=== PATIENT | female | born 1995 | race Hispanic/Latino ===

== ENCOUNTER 2022-08-18 09:18 | Emergency (ER) | payer OTHER ==
--- OUTSIDE RECORDS SUMMARY | 2022-08-18 09:25 | XMS REPORT | Continuity of Care Document ---
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 Gerhard as MATERNAL [phone] [facility] & CHILD [address] [place] [address] 2021-04-21 2021-04-21 Initial Erna [facility] 1.2.840.114 [id number] Univers 13:37:44 14:39:26 Stewart Michael 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 350.1.13.10 ity of Visit REGIONAL 4.2.7.2.686 Gerhard as MATERNAL [phone] [facility] & CHILD [address] [place] [address] 2021-04-21 2021-04-21 Outpatient Alec UMANZOR [facility] [id number] Univers 14:00:00 14:00:00 MANNDA artis o florentin [facility] 2021-04-21 2021-04-21 Outpatient [facility] [id number] Univers 13:30:00 13:30:00 MANNDA deborahy o florentin [facility] 2021-04-21 2021-04-21 Orders Doctor JOSE 1.2.840.114 [id number] Univers 00:00:00 00:00:00 Only Unassigned, COLLEEN 350.1.13.10 ity of [place] [facility] 4.2.7.2.686 Gerhard as [phone] [address] 2020-12-23 2020-12-23 Office Erna [facility] 1.2.840.114 [id number] Univers 08:33:52 09:07:07 Visit 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 R 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 350.1.13.10 ity of [facility] 4.2.7.2.686 Gerhard as MATERNAL [phone] [facility] ical & CHILD [address] [place] [address] 2020-12-23 2020-12-23 Outpatient Alec UMANZOR [facility] [id number] Univers 09:00:00 09:00:00 STEWART wisdom o florentin [facility] 2020-12-23 2020-12-23 Outpatient Alec UMANZOR [facility] [id number] Univers 09:00:00 09:00:00 STEWART barron [facility] 2020-10-06 2020-10-06 Nurse Visit, Located Within [facility] Nurse [facility] 1.2 .840.114 [id number] Univers 13:12:27 13:30:29 Visit Stewart Umanzor 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 350.1.13.10 ity of [facility] 4.2.7.2.686 Gerhard as MATERNAL [phone] [facility] & [address] 2020-10-06 2020-10-06 Outpatient Alec UMANZOR [facility] [id number] Univers 13:30:00 13:30:00 STEWART wisdom o florentin [facility] 2020-10-02 2020-10-02 [facility] [place] 1.2.840.114 [id number] Univers 12:47:27 13:15:07 oTrirajendranda R 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 350.1.13.10 ity of Visit [facility] 4.2.7.2.686 Gerhard as MATERNAL [phone] [facility] & CHILD [address] [place] [address] 2020-10-02 2020-10-02 Outpatient Alec UMANZOR [facility] [id number] Univers 12:45:00 12:45:00 STEWART lerma [facility] 2020-10-02 2020-10-02 Telephone Erna [facility] [id number] Univers 00:00:00 00:00:00 Stewart R 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 350.1.13.10 ity of [facility]AL 4.2.7.2.686 Gerhard as MATERNAL [phone] [facility] & CHILD [address] [place] [address] 2020-09-22 2020-09-22 Outpatient Alec UMANZOR [facility] [id number] Univers 10:30:00 10:30:00 STWEART barron [facility] 2020-09-22 2020-09-22 Outpatient Alec UMANZOR [facility] [id number] Univers 10:30:00 10:13:14 STEWART lerma [facility] 2020-09-22 2020-09-22 Automobile Damage Appraiser Lab, [facility] 1.2.840. 114 [id number] Univers 09:56:24 10:13:14 Visit Stewart Umanzor R 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 350.1.13.10 ity of [place] 4.2.7.2.686 Gerhard as MATERNAL [phone] [address] 2020-09-16 2020-09-16 Telephone Erna [facility] 1.2.644.408 [id number] Univers 00:00:00 00:00:00 Stewart R 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 350.1.13.10 ity of [facility]AL 4.2.7.2.686 Gerhard as MATERNAL [phone] [facility] & CHILD [address] [place] [address] 2020-09-15 2020-09-15 Outpatient [facility] [id number] Univers 10:30:00 10:30:00 STEWART barron [facility] 2020-09-15 2020-09-15 Automobile Damage Appraiser Lab, [facility] 1.2.840. 114 [id number] Univers 10:03:02 10:18:02 Visit Stewart Umanzor R 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 350.1.13.10 ity of [facility] 4.2.7.2.686 Gerhard as MATERNAL [phone] Med ical & CHILD [address] [place] [address] 2020-09-09 2020-09-09 [facility] [place] 1.2.246.376 [id number] Univers 00:00:00 00:00:00 Roshunda R 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 350.1.13.10 ity of [facility] 4.2.7.2.686 Gerhard as MATERNAL [phone] Med ical & CHILD [address] [place] [address] 2020-09-08 2020-09-08 Outpatient R [facility] [id number] Univers 08:30:00 08:30:00 MANNDA ity o f [facility] 2020-09-08 2020-09-08 Automobile Damage Appraiser Lab, [facility] 1.2.840. 114 [id number] [facility] 08:02:46 08:14:40 Visit Tori Umanzorarthur R 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 350.1.13.10 ity of [facility] 4..7.2.686 Gerhard as MATERNAL [phone] [facility] & CHILD [address] [place] [address] 2020-09-02 2020-09-02 Outpatient R [facility] [id number] Univers 09:30:00 09:30:00 MANNDA itirineo o florentin [facility] 2020-09-02 2020-09-02 [place] [facility] [place] [id number] Univers 00:00:00 00:00:00 Roshunda R 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 350.1.13.10 ity of [facility] 4.2.7.2.686 Gerhard as MATERNAL [phone] [facility] & CHILD [address] [place] [address] 2020-09-01 2020-09-01 Routine [facility] 1.2.840.114 [id number] Univers 13:56:31 14:43:33 Roshunda R 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 350.1.13.10 ity of Visit REGIONAL 4.2.7.2.686 Gerhard as MATERNAL [phone] [facility] ical & CHILD [address] [place] [address] 2020-09-01 2020-09-01 Outpatient [facility] [id number] Univers 14:15:00 14:15:00 MERYA artis o f [facility] 2020-08-27 2020-08-27 Emergency Sulma [facility] 1.2.840.114 [id number] Univers 11:32:00 13:56:00 Nina Kay [place] 350.1.13.10 ity of [place] 4.2.7.2.686 [facility] [phone] [facility] [address] [place] 2020-08-10 2020-08-10 Abstract Erna [facility] 1.2.840.114 [id number] Univers 00:00:00 00:00:00 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 R 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 350.1.13.10 ity of [facility] 4.2.7.2.686 Gerhard as MATERNAL [phone] Med ical & CHILD [address] [place] [address] 2020-08-05 2020-08-05 Automobile Damage Appraiser [facility] 1.2 .840.114 [id number] Univers 11:24:02 11:54:02 Visit Stewart Umanzor R 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 350.1.13.10 ity of [facility] 4.2.7.2 .686 [place] MATERNAL [phone] Med ical & CHILD [facility] 2020-08-05 2020-08-05 Routine Erna [facility] 1.2.840.114 [id number] Univers 08:31:46 08:46:46 Stewart R 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 350.1.13.10 ity of Visit REGIONAL 4.2.7.2.686 Gerhard as MATERNAL [phone] [facility] ical & CHILD [address] [place] [address] 2020-08-05 2020-08-05 Outpatient Alec UMANZOR [facility] [id number] Univers 08:15:00 08:15:00 STEWART lerma [facility] 2020-07-21 2020-07-21 Outpatient R ERNA [facility] [id number] Univers 10:30:00 10:30:00 STEWART lerma [facility] 2020-07-08 2020-07-08 Initial Erna [facility] 1.2.840.114 [id number] Univers 09:10:38 13:11:01 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 R 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 350.1.13.10 ity of Visit REGIONAL 4.2.7.2.686 Gerhard as MATERNAL [phone] [facility] ical & CHILD 107 [facility] 2020-07-08 2020-07-08 Outpatient R ERNA [facility] [id number] Univers 08:00:00 08:00:00 ROSHUNDA ity o f [facility] 2020-07-08 2020-07-08 Transition [facility] 1.2.840.114 [id number] Univers 00:00:00 00:00:00 of Care Kizzy Bucio 350.1.13.10 ity of [place].7.2.[place] [phone] [facility] [address] 2020-07-08 2020-07-08 Orders Doctor DAMON 1.2.840.114 [id number] Univers 00:00:00 00:00:00 Only Unassigned, COLLEEN 350.1.13.10 ity of [place] [facility] 4.2.7.2.686 Gerhard as [phone] [facility] [address] 2020-07-03 2020-07-06 [facility] Salazar Naima [facility] 1.2.840. 114 [id number] Univers 18:32:00 15:30:00 Encounter Alexei Chaudhari [place] 350.1.13.10 ity of [place] 4.2.7.2.686 [place] [phone] [facility] [address] [place] 2020-07-06 2020-07-06 [facility] [place] 1.2.825.883 [id number] Univers 00:00:00 00:00:00 Rospaigea R 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 350.1.13.10 ity of [facility] 4.2.7.2.686 Gerhard as MATERNAL [phone] [facility] & CHILD [address] [place] [address] 2020-07-02 2020-07-02 Office [facility] [place] 1.2.840.114 [id number] Univers 10:31:06 11:44:01 Visit Stewart R 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 350.1.13.10 ity of [facility] 4.2.7.2.686 Gerhard as MATERNAL [phone] [facility] ical & CHILD [address] [place] [address] 2020-07-02 2020-07-02 Outpatient R ERNA [facility] [id number] Univers 10:45:00 10:45:00 STEWART ity o f [facility] 2020-07-02 2020-07-02 Orders Doctor DAMON 1.2.840.114 [id number] Univers 00:00:00 00:00:00 Only Unassigned, COLLEEN 350.1.13.10 ity of [place] [facility] 4.2.7.2.686 Gerhard as [phone] [address] 2020-07-01 2020-07-01 Telephone ANUJ Childress 1.2.840.114 [id number] [facility] 00:00:00 00:00:00 Aline Anand 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 350.1.13.10 ity of [facility] 4.2.7.2.686 Gerhard as MATERNAL [phone] [facility] & CHILD [address] [place] [address] 2019-10-24 2019-10-24 [facility] 1.2 .840.114 [id number] [facility] 08:11:42 08:48:18 Visit Aline Childress 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 350.1.13. 10 ity of [facility] 4.2.7.2.686 Gerhard as MATERNAL [phone] [facility] & CHILD [address] [place] [address] 2019-05-09 2019-05-09 Nurse Visit, Isabelle Nurse [facility] 1.2 .840.114 [id number] Univers 09:28:44 09:44:44 Visit Aline Childress 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 350.1.13. 10 ity of [facility] 4.2.7.2.686 Gerhard as MATERNAL [phone] [facility] & CHILD [address] [place] [address] Results Test Description Test Time Test Comments Results Result Comments Source POCT TEST 2022-01-24 20:19:00 Test Item Value Reference Range Interpretation Comme nts POCT PREG (test code = 1605) Negative On board controls acceptable with C Line (test code = 3574) Yes POCT PREG LOT # (test code = 3575) POCT PREG TEST DATE (test code = 3576) [facility]
[2022-08-18] MEDS ORDERED: ONDANSETRON 4 MG/2 ML VIAL ONE (10:05)
[2022-08-18] MEDS ORDERED: MORPHINE 2 MG/ML SYR ONE ×2 (10:05→11:28)
[2022-08-18] MEDS ORDERED: NA CHLORIDE 0.9% 1,000 ML ONE (10:06)
[2022-08-18 10:08] LABS: Hematocrit 39.5 % (36.0-45.0); Lymphocytes % 8.3 % (15.3-44.8); MCV 84.6 fL (80-100); MPV 7.7 fL (7.6-11.3); RBC Red Blood Cell Count 4.67 M/uL (3.86-4.86)
[2022-08-18 10:19] LABS: Urine Bacteria <20 /HPF (<20); Urine Mucus Slight /HPF (None Seen); Urine RBC 21-50 /HPF (None Seen)
[2022-08-18 10:25] LABS: Albumin 4.1 g/dL (3.4-5.0); Bilirubin Total 0.6 mg/dL (0.2-1.0); Protein, Total 8.2 g/dL (6.4-8.2)
[2022-08-18 10:43] LABS: Urine Specific Gravity/Preg 1.025 (1.005-1.030)
[2022-08-18 10:48] LABS: SARS-COV-2 RT PCR NEGATIVE (NEGATIVE)
--- NOTE | 2022-08-18 11:07 | RAD REPORT ---
EXAM DESCRIPTION: CT - Abdomen Pelvis W Contrast - 08/18/2022 10:53 am CLINICAL HISTORY: abd pain, vomiting COMPARISON: <Comparisons> TECHNIQUE: Biphasic, helical CT imaging of the abdomen and pelvis was performed following 100 ml non -ionic IV contrast. Oral contrast: No. All CT scans are performed using dose optimization technique as appropriate and may include automated exposure control or mA/KV adjustment according to patient size. FINDINGS: No suspicious findings in the lung bases. The liver, spleen, and pancreas show no suspicious findings. Gallbladder and biliary tree are also wi thout suspicious finding. Symmetric renal function is seen with no hydronephrosis or suspicious renal mass. No pyelonephritis o r acute parenchymal process. No bladder abnormalities. No adrenal abnormalities. Uterus and ovaries s how no suspicious findings. No dilated bowel loops or bowel wall thickening. Appendix is normal. No free air, free fluid or infla mmatory stranding. No hernia, mass or bulky lymphadenopathy. A few small widely scattered mesenteric lymph nodes are present. No suspicious bony findings. IMPRESSION: Contrast enhanced CT abdomen and pelvis showing no acute or emergent finding.
--- NOTE | 2022-08-18 11:08 | RAD REPORT ---
EXAM DESCRIPTION: CT - Head Brain Wo Cont - 08/18/2022 10:52 am CLINICAL HISTORY: headache, vomiting COMPARISON: No comparisonsNo comparisons TECHNIQUE: Axial 5 mm thick images of the head were obtained without IV contrast. All CT scans are performed using dose optimization technique as appropriate and may include automated exposure control or mA/KV adjustment according to patient size. FINDINGS: No intracranial hemorrhage, mass, edema or shift of mid-line structures. No acute infarcti on changes seen. No abnormal extra-axial fluid collections. Ventricles are normal. Mastoid air cells and visualized portions of the paranasal sinuses are clear. No acute bony findings. IMPRESSION: Negative non-contrast CT head examination.
[2022-08-18] MEDS ORDERED: KETOROLAC 30 MG/ML INJ ONE (11:28)
--- NOTE | 2022-08-18 11:32 | ER ---
Nurse's Notes [facility] Name: Rickey Gary Age: 27 yrs Sex: Female : 1995 Arrival Date: 08/18/2022 Time: 09:25 Bed 12 Private MD: Diagnosis: Headache;Abdominal pain, unspecified;Vomiting, unspecified Presentation: 08/18 09:46 Chief complaint: Patient states: she started having a headache and abdominal pain ap3 yesterday. patient also reports having nausea and vomiting with the pain. Coronavirus screen: Client presents with at least one sign or symptom that may indicate coronavirus-19. Ebola Screen: No symptoms or risks identified at this time. Initial Sepsis Screen: Does the patient meet any 2 criteria? HR > 90 bpm. No. Patient's initial sepsis screen is negative. Does the patient have a suspected source of infection? No. Patient's initial sepsis screen is negative. Risk Assessment: Do you want to hurt yourself or someone else? Patient reports no desire to harm self or others. Onset of symptoms was August 17, 2022. 09:46 Method Of Arrival: Ambulatory ap3 09:46 Acuity: MILTON 3 ap3 Triage Assessment: 09:50 General: Appears. ap3 09:50 General: Appears uncomfortable, Behavior is calm, cooperative. Pain: Complains of pain ap3 in face and abdomen. Neuro: Level of Consciousness is awake, alert, obeys commands, Oriented to person, place, time. GI: Reports lower abdominal pain, upper abdominal pain, nausea. 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 - Social history:: Smoking status: Patient denies any tobacco usage or history of. - Family history:: not pertinent. - Hospitalizations: : No recent hospitalization is reported. Screenin:50 Abuse screen: Denies threats or abuse. Nutritional screening: No deficits noted. ap3 Tuberculosis screening: No symptoms or risk factors identified. Fall Risk None identified. Assessment: 10:45 Reassessment: No changes from previously documented assessment. Patient and/or family kr3 updated on plan of care and expected duration. Pain level reassessed. Patient is alert, oriented x 3, equal unlabored respirations, skin warm/dry/pink. 11:45 Reassessment: Patient and/or family updated on plan of care and expected duration. Pain kr3 level reassessed. Patient states symptoms have improved. 12:09 GI: Abdomen is tender to palpation X 4 quads. kr3 Vital Signs: 09:46 BP 119 / 68; Pulse 105; Resp 18; Temp 98.7(O); Pulse Ox 99% ; Weight 79.38 kg; Height 5 ap3 ft. 5 in. (165.10 cm); 10:45 BP 109 / 68; Pulse 96; Resp 17; Pulse Ox 100% on R/A; kr3 12:07 BP 118 / 73; Pulse 98; Resp 17; Pulse Ox 100% on R/A; kr3 09:46 Body Mass Index 29.12 (79.38 kg, 165.10 cm) ap3 [place] Coma Score: 11:23 Eye Response: spontaneous(4). Verbal Response: oriented(5). Motor Response: obeys rn commands(6). Total: 15. ED Course: 09:25 Patient arrived in ED. rg4 09:26 Jamison Pringle MD is Attending Physician. rn 09:44 Frances Quintana, ESTRELLITA is Primary Nurse. kr3 09:47 Triage completed. ap3 09:50 Arm band placed on right wrist. ap3 09:50 Patient has correct armband on for positive identification. Placed in gown. Adult w/ ap3 patient. Pulse ox on. NIBP on. Door closed. Noise minimized. 10:02 Inserted saline lock: 22 gauge in right antecubital area, using aseptic technique. kr3 Blood collected. 10:39 Urine --Ancillary (enter results) Sent. kj1 10:54 CT Head Brain wo Cont In Process Unspecified. EDMS 10:55 CT Abd/Pelvis - IV Contrast Only In Process Unspecified. EDMS 12:09 No provider procedures requiring assistance completed. IV discontinued, intact, kr3 bleeding controlled, No redness/swelling at site. Pressure dressing applied. Administered Medications: 10:15 Drug: Zofran (Ondansetron) 4 mg Route: IVP; Site: right antecubital; kr3 12:08 Follow up: Response: No adverse reaction kr3 10:20 Drug: NS 0.9% 1000 ml Route: IV; Rate: 1 bolus; Site: right antecubital; kr3 12:08 Follow up: Response: No adverse reaction; IV Status: Completed infusion; IV Intake: kr3 1000ml 10:20 Drug: morphine 2 mg Route: IVP; Infused Over: 4 mins; Site: right antecubital; kr3 11:25 Follow up: Response: No adverse reaction; RASS: Alert and Calm (0) kr3 11:34 Drug: Ketorolac 30 mg Route: IVP; Site: right antecubital; kr3 12:06 Follow up: Response: No adverse reaction kr3 11:34 Drug: morphine 2 mg Route: IVP; Infused Over: 4 mins; Site: right antecubital; kr3 12:06 Follow up: Response: No adverse reaction; RASS: Alert and Calm (0) kr3 Medication: 12:09 VIS not applicable for this client. kr3 Intake: 12:08 IV: 1000ml; Total: 1000ml. kr3 Outcome: 11:31 Discharge ordered by . rn 12:08 Patient left the ED. kr3 12:09 Discharge instructions given to patient, Instructed on discharge instructions, follow kr3 up and referral plans. medication usage, Demonstrated understanding of instructions, follow-up care, medications, Prescriptions given X 1. 12:09 Discharged to home ambulatory. kr3 12:09 Condition: stable Signatures: Dispatcher [employer] EDMS Jamison Pringle MD MD rn Garcia, Rubi rg4 Abbey Esparza RN RN [email or web address] Joanna Tena kj1 Frances Quintana RN RN kr3
--- NOTE | 2022-08-18 11:32 | EDPHYS ---
Physician Documentation [facility] Name: Rickey Gary Age: 27 yrs Sex: Female : 1995 Arrival Date: 08/18/2022 Time: 09:25 Bed 12 Private MD: ED Physician Jamison Pringle HPI: 08/18 10:48 This 27 yrs old Female presents to ER via Ambulatory with complaints of rn Abdominal Pain, Headache. 10:48 The patient complains of pain to the forehead. The patient describes the headache as rn aching. Onset: The symptoms/episode began/occurred last night. Associated signs and symptoms: Pertinent positives: nausea, vomiting, abd pain. Severity of symptoms: At its worst the pain was moderate, in the emergency department the pain is unchanged. Headache History: Denies prior headaches. The symptoms are alleviated by nothing. the symptoms are aggravated by nothing. The patient has not experienced similar symptoms in the past. The patient has not recently seen a physician. Pt reports headache that began last night, no hx of migraines, no fever. Also reports began with abd pain this AM, assoc with nausea and vomited x 2. No blood. No urinary symptoms. No sick contacts. No neck pain or stiffness. . 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 - Social history:: Smoking status: Patient denies any tobacco usage or history of. - Family history:: not pertinent. - Hospitalizations: : No recent hospitalization is reported. ROS: 10:48 Constitutional: Negative for weight loss Eyes: Negative for injury, pain, redness, and sheet turner, ENT: Negative for injury, pain, and discharge, Cardiovascular: Negative for chest pain, palpitations, and edema, Respiratory: Negative for shortness of breath, cough, wheezing, and pleuritic chest pain, Abdomen/GI: + abd pain /nausea/vomiting Back: Negative for injury and pain, : Negative for injury, bleeding, discharge, and swelling, MS/Extremity: Negative for injury and deformity, Skin: Negative for injury, rash, and discoloration, Neuro: Negative for weakness, numbness, tingling, and seizure. Exam: 10:48 Constitutional: This is a well developed, well nourished patient who is awake, alert, rn and in no acute distress. Head/Face: Normocephalic, atraumatic. Eyes: Periorbital areas with no swelling, redness, or edema. Neck: Trachea midline, no thyromegaly or masses palpated, and no cervical lymphadenopathy. Supple, full range of motion without nuchal rigidity, or vertebral point tenderness. No Meningismus. Cardiovascular: Tachycardic, regular. No pulse deficits. Respiratory: No increased work of breathing, no retractions or nasal flaring. Abdomen/GI: soft, + tender in all quadrants. NO peritoneal signs. Back: No spinal tenderness. No costovertebral tenderness. Full range of motion. Skin: Warm, dry with normal turgor. Normal color with no rashes, no lesions, and no evidence of cellulitis. MS/ Extremity: Pulses equal, no cyanosis. Neurovascular intact. Full, normal range of motion. Equal circumference. Neuro: Awake and alert, GCS 15, oriented to person, place, time, and situation. Cranial nerves II-XII grossly intact. Motor strength 5/5 in all extremities. Sensory grossly intact. Vital Signs: 09:46 BP 119 / 68; Pulse 105; Resp 18; Temp 98.7(O); Pulse Ox 99% ; Weight 79.38 kg; Height 5 ap3 ft. 5 in. (165.10 cm); 10:45 BP 109 / 68; Pulse 96; Resp 17; Pulse Ox 100% on R/A; kr3 12:07 BP 118 / 73; Pulse 98; Resp 17; Pulse Ox 100% on R/A; kr3 09:46 Body Mass Index 29.12 (79.38 kg, 165.10 cm) ap3 Shalom Coma Score: 11:23 Eye Response: spontaneous(4). Verbal Response: oriented(5). Motor Response: obeys rn commands(6). Total: 15. MDM: 09:26 Patient medically screened. rn 11:23 Differential diagnosis: intracerebral hemorrhage, migraine, neoplasm, tension headache, rn vasomotor headache, viral syndrome, enteritis, flu, covid. 11:30 Data reviewed: vital signs, nurses notes, lab test result(s), radiologic studies, CT rn scan, and as a result, I will discharge patient. Counseling: I had a detailed discussion with the patient and/or guardian regarding: the historical points, exam findings, and any diagnostic results supporting the discharge/admit diagnosis, lab results, radiology results, the need for outpatient follow up, to return to the emergency department if symptoms worsen or persist or if there are any questions or concerns that arise at home. Response to treatment: the patient's symptoms have markedly improved after treatment, and as a result, I will discharge patient. Special discussion: I discussed with the patient/guardian in detail that at this point there is no indication for admission to the hospital. It is understood, however, that if the symptoms persist or worsen the patient needs to return immediately for re-evaluation. ED course: Pt improved, no acute findings in ct head/abdomen. Urine neg. COVID and flu neg. Will dc home with return precautions and zofran prn. . 08/18 09:45 Order name: COVID-19/FLU A+B; Complete Time: 10:52 rn 08/18 09:45 Order name: CBC with Diff; Complete Time: 10:48 rn 08/18 09:45 Order name: CMP; Complete Time: 10:48 rn 08/18 09:45 Order name: Lipase; Complete Time: 10:48 rn 08/18 09:45 Order name: Urine Microscopic Only; Complete Time: 10:48 rn 08 10:14 Order name: Urine --Ancillary (enter results); Complete Time: 10:48 kj1 08/18 09:45 Order name: CT Head Brain wo Cont; Complete Time: 11:10 rn 08 09:45 Order name: IV Start; Complete Time: 10:02 rn 08/18 09:45 Order name: CT Abd/Pelvis - IV Contrast Only; Complete Time: 11:10 rn 08 09:45 Order name: Labs collected and sent; Complete Time: 10:01 rn 08/18 09:45 Order name: Urine Dipstick-Ancillary (obtain specimen); Complete Time: 10:20 rn 08/18 09:45 Order name: Urine Test (obtain specimen); Complete Time: 10:20 rn Administered Medications: 10:15 Drug: Zofran (Ondansetron) 4 mg Route: IVP; Site: right antecubital; kr3 12:08 Follow up: Response: No adverse reaction kr3 10:20 Drug: NS 0.9% 1000 ml Route: IV; Rate: 1 bolus; Site: right antecubital; kr3 12:08 Follow up: Response: No adverse reaction; IV Status: Completed infusion; IV Intake: kr3 1000ml 10:20 Drug: morphine 2 mg Route: IVP; Infused Over: 4 mins; Site: right antecubital; kr3 11:25 Follow up: Response: No adverse reaction; RASS: Alert and Calm (0) kr3 11:34 Drug: Ketorolac 30 mg Route: IVP; Site: right antecubital; kr3 12:06 Follow up: Response: No adverse reaction kr3 11:34 Drug: morphine 2 mg Route: IVP; Infused Over: 4 mins; Site: right antecubital; kr3 12:06 Follow up: Response: No adverse reaction; RASS: Alert and Calm (0) kr3 Disposition Summary: 08/18/22 11:31 Discharge Ordered Location: Home rn Problem: new rn Symptoms: have improved rn Condition: Stable rn Diagnosis - Headache rn - Abdominal pain, unspecified rn - Vomiting, unspecified rn Followup: rn - With: Private Physician - When: As needed - Reason: Recheck today's complaints, Re-evaluation by your physician Discharge Instructions: - Discharge Summary Sheet rn - Abdominal Pain, Adult rn - General Headache Without Cause rn - Pain Without a Known Cause rn Forms: - Medication Reconciliation Form rn - Thank You Letter rn - Antibiotic turn machine operator - Prescription Opioid Use rn Prescriptions: - ondansetron 4 mg Oral tablet,disintegrating - place 1 tablet by TRANSLINGUAL route every 8 hours As needed; 15 tablet; rn Refills: 0, Product Selection Permitted Signatures: Dispatcher [employer] Jamison Ley MD MD rn Abbey Esparza RN RN ap3 Frances Quintana RN RN kr3
[2022-08-18 13:02] VITALS: TEMP 98.7
[2022-08-18 13:08] VITALS: O2SAT 100
[2022-08-18 13:09] VITALS: BP 118/73
== END 2022-08-18 12:08 | disposition home or self-care (01) ==
LOC: ER 09:18
DX: R51.9 Headache, unspecified (principal); R11.10 Vomiting, unspecified; R10.9 Unspecified abdominal pain; Z20.822 Contact with and (suspected) exposure to COVID-19
CPT/HCPCS: 96361; 85025; 36415; 81025; 81015; 83690; 80053; 0240U; 70450; 74177; 96375; 96374; 99284; Q9967; J2270 ×2; J7030; J2405

== ENCOUNTER 2022-08-18 19:19 | Emergency (ER) | payer OTHER ==
--- OUTSIDE RECORDS SUMMARY | 2022-08-18 19:29 | XMS REPORT | Continuity of Care Document ---
:1995 Author Organization [facility] t Address [address] [place] [address] Care Team Providers Name Role Phone STEWART UMANZOR Primary Care Physician Unavailable ALINE CHILDRESS Attending Clinician Unavailable Stewart Saldaña Attending Clinician STEWART UMANZOR Attending Clinician Unavailable Nurse, Aristides Otero Exp Cprit Obgyn Attending Clinician Unavail able Doctor Unassigned, [place] Attending Clinician Unavailable RONALD NICOLE Attending Clinician Unavailable Josefina MANCILLA, Suzanne Attending Clinician Ronald Nicole MD Attending Clinician Lab, Isabelle Attending Clinician Unavailable Niesha Bazzi Attending Clinician NIESHA OZUNA Attending Clinician Unavailable Ultrasound, Derrickmaegan Attending Clinician Unavailable Marcelina Caldwell MD Attending Clinician MARCELINA CALDWELL Attending Clinician Unavailable MARCELINA CALDWELL Attending Clinician Unavailable Provider, Isabelle Temp Attending Clinician Unavailable Fawad Coats Attending Clinician [phone] Antonio Briones MD Attending Clinician [facility] Attending Clinician Unavailable Nina Ozuna DO Attending Clinician David Garner MD, Promise Attending Clinician [phone] Kizzy Church Attending Clinician Martin RAYP, Naima Attending Clinician Watson MANCILLA, Alexei Attending Clinician Fior WHCNP, Aline Cheng Attending Clinician [phone] RONALD NICOLE Admitting Clinician Unavailable Kartik MANCILLA, Ronald Admitting Clinician Watson MANCILLA, Alexei Admitting Clinician Payers Payer Name Policy Type Policy Number Effective Date Expiration Date S bas[place] [employer] [id number] 2020 HEALTH PLAN MOM 00:00:00 [employer] MEDICAID ALIEN PENDING 2020 PENDING 00:00:00 TMHP [id number] 2021 2021 EMERGENCY 00:00:00 00:00:00 MEDICAID Problems Condition Condition Condition Status Onset Resolution Last Treating Co mments Source Name Details Category Date Date Treatment Clinician Date Disease Active Univers (spontaneo (spontaneo 3-27 it y of [place] vaginal [place] 00 [facility] Single Single Disease Active Univers liveborn liveborn 3-27 ity of 00:00: [place] 00 [facility] Branch 39 weeks 39 weeks Disease Active Unive rs gestation gestation 3-26 ity of of of 00:00: [place] 00 [facility] Supervisio Supervisio Disease Active 2019-09 U nivers n of high n of high 0-28 ity of risk risk 00:00: [place] 00 [facility] in third in third Branch trimester trimester [...] different from the original. ICD10 Diagnosis Term Development Eng Utility Nexplanon Nexplanon Disease Active Uni vers insertion insertion 09-15 ity of 00:00: Medical Branch BMI BMI Disease Active Overview: Univer s 25.0-25.9, 25.0-25.9, 1-05 Formattin ity of adult adult 00:00: g of this [place] note Medical might be Branch different from the original. ICD10 Diagnosis Term Development Eng Utility Multiparit Multiparit Disease Active 2011-09 U nivers y y 09-29 ity of 00:00: [facility] Allergies, Adverse Reactions, Alerts Allergy Allergy Status Severity Reaction(s) Onset Inactive Treating Comm ents Source Name Type Date Date Clinician NO KNOWN Drug Active Univers ALLERGIE Class ity of S [facility] Social History Social Habit Start Date Stop Date Quantity Comments Source Exposure to 2022-05-31 2022-06-10 Not sure [facility]-CoV-2 00:00:00 09:48:00 [facility] (event) [place] Alcohol intake 2022-01-24 2022-01-24 Current [facility] 00:00:00 00:00:00 non-drinker of [facility] alcohol (finding) Branch Tobacco use and 2013-10-07 2013-10-07 Smokeless tobacco Un iversity of exposure 00:00:00 00:00:00 non-user [facility] Sex Assigned At [birth year] Universit y of 00:00:00 00:00:00 [facility] Smoking Status Start Date Stop Date Source Never smoked tobacco [facility] Medications Ordered Filled Start Stop Current Ordering Indication Dosage Frequency Signature Comments Components Source Medication Medication Date Date Medication? Clinician (SIG) Name Name etonogestre 2021- No [id number] 68mg Univers L 01-24 ity of (NEXPLANON) 22:00: 21:19 [place] implant 68 00 :00 Medical mg Branch etonogestre 2021- No [id number] 68mg 68 mg, Univers L 01-24 Subdermal, ity of (NEXPLANON) 22:00: 21:19 ONCE NOW, [place] implant 68 00 :00 1 dose, On Med ical mg Mon Branch 01/24/22 at 1700, Routine
Use approved by: INTERNET NETWORK SPECIALIST Yes [id number] 1{tbl} Take 1 Univers vitamin 3-27 tablet by ity of w/FA tablet 00:00: mouth [place] 00 daily. Medical Branch docusate Yes [id number] 240mg Take 1 U nivers calcium 240 3-27 capsule by it y of mg capsule 00:00: mouth [place] 00 daily as Medical needed for Branch Constipati on. ferrous Yes [id number] 325mg Take 1 Un radha sulfate 325 3-27 tablet by ity of mg (65 mg 00:00: mouth 2 [place] iron) 00 (two) Medical tablet times Branch daily. ibuprofen Yes [id number] 600mg Take 1 Univers 600 mg 3-27 tablet by ity of tablet 00:00: mouth [place] 00 every 6 Medical (six) Branch hours as needed (Pain). Take with food or milk. Yes [id number] 1{tbl} Take 1 Univers vitamin 3-27 tablet by ity of w/FA tablet 00:00: mouth [place] 00 daily. Medical Branch docusate Yes [id number] 240mg Take 1 U nivers calcium 240 3-27 capsule by it y of mg capsule 00:00: mouth once [place] 00 daily as Medical needed for Branch Constipati on. ferrous Yes [id number] 325mg Take 1 Un radha sulfate 325 3-27 tablet by ity of mg (65 mg 00:00: mouth 2 [place] iron) 00 (two) Medical tablet times Branch daily. ibuprofen Yes [id number] 600mg Take 1 Univers 600 mg 3-27 tablet by ity of tablet 00:00: mouth [place] 00 every 6 Medical (six) Branch hours as needed (Pain). Take with food or milk. Yes [id number] 1{tbl} Take 1 Univers vitamin 3-27 tablet by ity of w/FA tablet 00:00: mouth [place] 00 daily. Medical Branch docusate Yes [id number] 240mg Take 1 U nivers calcium 240 3-27 capsule by it y of mg capsule 00:00: mouth once [place] 00 daily as Medical needed for Branch Constipati on. ferrous Yes [id number] 325mg Take 1 Un radha sulfate 325 3-27 tablet by ity of mg (65 mg 00:00: mouth 2 [place] iron) 00 (two) Medical tablet times Branch daily. ibuprofen Yes [id number] 600mg Take 1 Univers 600 mg 3-27 tablet by ity of tablet 00:00: mouth [place] 00 every 6 Medical (six) Branch hours as needed (Pain). Take with food or milk. Yes [id number] 1{tbl} Take 1 Univers vitamin 3-27 tablet by ity of w/FA tablet 00:00: mouth [place] 00 daily. Medical Branch docusate Yes [id number] 240mg Take 1 U nivers calcium 240 3-27 capsule by it y of mg capsule 00:00: mouth once [place] 00 daily as Medical needed for Branch Constipati on. ferrous Yes [id number] 325mg Take 1 Un radha sulfate 325 3-27 tablet by ity of mg (65 mg 00:00: mouth 2 [place] iron) 00 (two) Medical tablet times Branch daily. ibuprofen Yes [id number] 600mg Take 1 Univers 600 mg 3-27 tablet by ity of tablet 00:00: mouth [place] 00 every 6 Medical (six) Branch hours as needed (Pain). Take with food or milk. Immunizations Ordered Filled Immunization Date Status Comments [facility] e Immunization Name Name [facility] 2022-06-10 Completed University of 00:00: [facility] 2022-06-10 Completed University of 00:00: [facility] HPV9 2022-01-07 Completed University of 00:00: [facility] HPV9 2022-01-07 Completed University of 00:00: [facility] HPV9 2022-01-07 Completed University of 00:00: [facility] HPV9 2022-01-07 Completed University of 00:00: [facility] HPV9 2021-12-05 Completed University of 00:00: [facility] 2021-12-05 Completed University of 00:00: [facility] HPV9 2021-12-05 Completed University of 00:00:00 [facility] HPV9 2021-12-05 Completed University of 00:00:00 [facility] TDAP 2021-10-08 Completed University of 00:00:00 [facility] TDAP 2021-10-08 Completed University of 00:00:00 [facility] TDAP 2021-10-08 Completed University of 00:00:00 [facility] TDAP 2021-10-08 Completed University of 00:00:00 [facility] Influenza Virus 2021-07-15 Completed Universit y of Vaccine Quad IM, 00:00:00 [place] Me dical Preserv and ABX Branch Free 6 MO-64 YRS Influenza Virus 2021-07-15 Completed Universit y of Vaccine [facility] IM, 00:00:00 [place] Me dical Preserv and ABX Branch Free 6 MO-64 YRS Influenza Virus 2021-07-15 Completed Universit y of Vaccine Quad IM, 00:00:00 [place] Me dical Preserv and ABX Branch Free 6 MO-64 YRS Influenza Virus 2021-07-15 Completed Universit y of Vaccine Quad IM, 00:00:00 [facility] dical Preserv and ABX Branch Free 6 MO-64 YRS SARS-COV-2 COVID-19 2021-03-29 Completed Unive rsity of MODERNA VACCINE 00:00:00 [facility] SARS-COV-[facility] COVID-19 2021-03-29 Completed Unive rsity of MODERNA VACCINE 00:00:00 [facility] ical Branch SARS-COV-2 COVID-19 2021-03-29 Completed Unive rsity of MODERNA 12+ YRS 00:00:00 [facility] VACCINE Branch SARS-COV-2 COVID-19 2021-03-29 Completed Unive rsity of MODERNA 12+ YRS 00:00:00 [facility] Branch SARS-COV-2 COVID-19 2021-03-01 Completed Unive rsity of MODERNA VACCINE 00:00:00 [facility] SARS-COV-2 COVID-19 2021-03-01 Completed Unive rsity of MODERNA VACCINE 00:00:00 [facility] SARS-COV-2 COVID-19 2021-03-01 Completed Unive rsity of MODERNA 12+ YRS 00:00:00 [facility] VACCINE Branch SARS-COV-2 COVID-19 2021-03-01 Completed Unive rsity of MODERNA 12+ YRS 00:00:00 [facility] VACCINE Branch Influenza Virus 2019-08-01 Completed Universit y of Vaccine Quad .5 mL 00:00:00 [place] Medical IM 6+ MO Branch Influenza Virus 2019-08-01 Completed Universit y of Vaccine Quad .5 mL 00:00:00 [place] Medical IM 6+ MO Branch Influenza Virus 2019-08-01 Completed Universit y of Vaccine Quad .5 mL 00:00:00 [place] Medical IM 6+ MO Branch Influenza Virus 2019-08-01 Completed Universit y of Vaccine Quad .5 mL 00:00:00 [place] Medical IM 6+ MO Branch Influenza Virus 2018-11-22 Completed Universit y of Vaccine Quad .5 mL 00:00:00 [place] Medical IM 6+ MO Branch Influenza Virus 2018-11-22 Completed Universit y of Vaccine Quad .5 mL 00:00:00 [place] Medical IM 6+ MO Branch Influenza Virus 2018-11-22 Completed Universit y of Vaccine Quad .5 mL 00:00:00 [place] Medical IM 6+ MO Branch Influenza Virus 2018-11-22 Completed Universit y of Vaccine Quad .5 mL 00:00:00 [facility] 6+ MO Branch TDAP 2013-07-16 Completed University of 00:00:00 [facility] TDAP 2013-07-16 Completed University of 00:00:00 [facility] TDAP 2013-07-16 Completed University of 00:00:00 [facility] TDAP 2013-07-16 Completed University of 00:00:00 [facility] PPD (TB) 2009-11-03 Completed University of 00:00:00 [facility] H1n1 Vaccine 2009-11-03 Completed University o f 00:00:00 [facility] Influenza Virus 2009-11-03 Completed Universit y of Vaccine - Whole 00:00:00 [facility] PPD (TB) 2009-11-03 Completed University of 00:00:00 [facility] H1n1 Vaccine 2009-11-03 Completed University o f 00:00:00 [facility] Influenza Virus 2009-11-03 Completed Universit y of Vaccine - Whole 00:00:00 [facility] Vital Signs Vital Name Observation Time Observation Value Comments Source Systolic blood 2022-06-10 14:49:00 120 mm[Hg] Univer sity of pressure [facility] Diastolic blood 2022-06-10 14:49:00 73 mm[Hg] Unive rsity of pressure [facility] Heart rate 2022-06-10 14:49:00 74 /min Universi ty of [facility] Body temperature 2022-06-10 14:49:00 36.5 Suzan Univ ersity of [facility] Respiratory rate 2022-06-10 14:49:00 18 /min Univ ersity of [facility] Body height 2022-06-10 14:49:00 162.6 cm Universi ty of [facility] Body weight 2022-06-10 14:49:00 67.314 kg Universi ty of [facility] BMI 2022-06-10 14:49:00 25.47 kg/m2 Universi ty of [facility] Systolic blood 2022-01-24 20:17:00 111 mm[Hg] Univer sity of [facility] Diastolic blood 2022-01-24 20:17:00 72 mm[Hg] Unive rsity of [facility] Heart rate 2022-01-24 20:17:00 74 /min Universi ty of [facility] Body temperature 2022-01-24 20:17:00 36.33 [facility] Respiratory rate 2022-01-24 20:17:00 16 /min [facility] Body height 2022-01-24 20:17:00 162.6 cm Universi ty of [facility] Body weight 2022-01-24 20:17:00 67.586 kg Universi ty of [facility] BMI 2022-01-24 20:17:00 25.58 kg/m2 Universi ty of [facility] Procedures Procedure Date / Time Performing Clinician Source Performed GARDASIL 9 (HPV 9V) 2022-06-10 14:22:19 Stewart Umanzor [facility] VACCINE [facility] POCT TEST 2022-01-24 20:19:00 Stewart Umanzor [facility] CONSENT FOR 2022-01-24 05:01:00 [facility] Start End Encounter Admission Attending Care Care Encounter Source Date/Time Date/Time Type Type Clinicians Facility Department ID 2021-07-10 Emergency [facility] [id number] Univers 11:53:06 ity [facility] 2021-07-10 Emergency [facility] [id number] Univers 00:49:57 ity of [facility] 2023-01-25 2023-01-25 Outpatient R REESESARAHDOMINGUEZ [facility] [id number] Univers 09:00:00 09:00:00 ALINE wisdom o f [facility] 2022-09-13 2022-09-13 Outpatient R [facility] [id number] Univers 13:45:00 13:45:00 ity of [facility] 2022-08-16 2022-08-16 [facility] [id number] Univers 00:00:00 00:00:00 Stewart R INTERNET NETWORK SPECIALIST [id number] ity of [facility] [id number] Gerhard as MATERNAL [phone] [facility] [address] [place] [address] 2022-06-10 2022-06-10 Outpatient R ERNA [facility] [id number] Univers 09:30:00 09:46:29 STEWART wisdom o [facility] 2022-06-10 2022-06-10 Nurse Nurse, Aristides Rmchp Exp Cprit Obgyn U [facility] [id number] Univers 09:30:00 09:46:29 Visit Erna Stewart R INTERNET NETWORK SPECIALIST [id number] ity of REGIONAL [id number] Gerhard as MATERNAL [id number] [facility] [address] [place] [address] 2022-01-24 2022-01-24 Office [facility] [id number] Univers 16:00:00 16:28:22 Visit Toriarthur R INTERNET NETWORK SPECIALIST [id number] ity of REGIONAL [id number] Gerhard as MATERNAL [id number] [facility] & CHILD [address] [place] [address] 2022-01-24 2022-01-24 Outpatient R ERNA [facility] [id number] Univers 16:00:00 16:28:22 STEWART wisdom o [facility] 2022-01-24 2022-01-24 Outpatient R UMANZOR, [facility] [id number] Univers 16:00:00 16:00:00 STEWART lerma [facility] 2022-01-24 2022-01-24 Outpatient Alec UMANZOR [facility] [id number] Univers 15:15:00 14:59:22 STEWART barron [facility] 2022-01-24 2022-01-24 Orders Doctor DAMON [id number] Univers 00:00:00 00:00:00 Only Unassigned, COLLEEN [id number] ity of [place] [facility] [id number] Gerhard as [id number] [address] 2022-01-20 2022-01-20 Outpatient Alec UMANZOR [facility] [id number] Univers 08:45:00 08:45:00 STEWART barron [facility] 2022-01-07 2022-01-07 Nurse Nurse, Aristides Rmchp Exp Cprit Obgyn U [facility] [id number] Univers 09:30:00 09:30:00 Visit Stewart Umanzor R INTERNET NETWORK SPECIALIST [id number] ity of REGIONAL [id number] Gerhard as MATERNAL [id number] Med ical & CHILD [address] [place] [address] 2022-01-07 2022-01-07 Outpatient Alec UMANZOR [facility] [id number] Univers 09:30:00 09:26:50 STEWART barron [facility] 2021-12-27 2021-12-27 Outpatient Alec UMANZOR [facility] [id number] Univers 09:45:00 10:14:58 STEWART barorn [facility] 2021-12-27 2021-12-27 [facility]ine [facility] [id number] Univers 09:45:00 10:14:58 Mannda R INTERNET NETWORK SPECIALIST [id number] ity of Visit REGIONAL [id number] Gerhard as MATERNAL [id number] [facility] ical & CHILD [address] [place] [address] 2021-12-04 2021-12-05 Inpatient P RONALD NICOLE [facility] NEFTALI [id number] Univers 07:54:00 18:27:00 ity of [facility] 2021-12-04 2021-12-05 [facility] Suzanne Rocha [id number] Univers 07:54:00 18:27:00 Encounter Ronald Nicole COLLEEN [id number] ity [facility] [id number] Gerhard as [id number] [address] 2021-12-01 2021-12-01 [facility] [id number] Univers 10:45:00 11:27:11 ROSHUNDA ity o [facility] 2021-12-01 2021-12-01 Routine [facility] [id number] Univers 10:45:00 11:27:11 Roshunda R INTERNET NETWORK SPECIALIST [id number] ity of Visit [facility] [id number] Gerhard as MATERNAL [id number] Med ical & CHILD [address] [place] [address] 2021-12-01 2021-12-01 [facility] [id number] Univers 10:45:00 10:45:00 ROSHUNDA ity o [facility] 2021-11-23 2021-11-23 [facility] [id number] Univers 11:00:00 11:19:49 ROSHUNDA ity o [facility] 2021-11-23 2021-11-23 Routine [facility] [id number] Univers 11:00:00 11:15:00 Roshunda R INTERNET NETWORK SPECIALIST [id number] ity of Visit [facility] [id number] Gerhard as MATERNAL [id number] [facility] ical & CHILD [address] [place] [address] 2021-11-18 2021-11-18 [facility] [id number] Univers 13:30:00 13:30:00 ROSHUNDA ity o [facility] 2021-11-18 2021-11-18 Vacuum Frame Operator Lab, Ang-Rmchp [facility] 1.2.840. 114 [id number] Univers 13:30:00 13:30:00 Visit Umanzor, Stewart R INTERNET NETWORK SPECIALIST [id number] ity of REGIONAL [id number] Gerhard as MATERNAL [id number] [facility] ical & CHILD [address] [place] [address] 2021-11-17 2021-11-17 [facility]phone [facility] [id number] Univers 00:00:00 00:00:00 Merya R INTERNET NETWORK SPECIALIST [id number] ity of REGIONAL [id number] Gerhard as MATERNAL [id number] [facility] & [address] 2021-11-16 2021-11-16 Outpatient [facility] [id number] Univers 10:00:00 10:50:48 STEWART wisdom o [facility] 2021-11-16 2021-11-16 [facility]ine [facility] [id number] Univers 10:00:00 10:50:48 Mannda R INTERNET NETWORK SPECIALIST [id number] ity of Visit REGIONAL [id number] Gerhard as MATERNAL [id number] [facility] & [address] 2021-11-16 2021-11-16 Outpatient Alec UMANZOR [facility] [id number] Univers 10:00:00 10:50:48 MANNDA artis o [facility] 2021-11-16 2021-11-16 Outpatient Alec UMANZOR [facility] [id number] Univers 10:00:00 10:00:00 MANNDA artis o f [facility] 2021-11-10 2021-11-10 Outpatient Alec UMANZOR [facility] [id number] Univers 08:15:00 08:34:28 STEWART wisdom o f [facility] 2021-11-10 2021-11-10 [facility] 1.2.840.114 [id number] Univers 08:15:00 08:34:28 Roshunda R INTERNET NETWORK SPECIALIST [id number] ity of Visit REGIONAL [id number] Gerhard as MATERNAL [id number] [facility] & [address] 2021-10-27 2021-10-27 Outpatient Alec UMANZOR [facility] [id number] Univers 14:45:00 15:13:29 ROSHUNDA ity o f [facility] 2021-10-27 2021-10-27 [facility] [id number] Univers 14:45:00 15:13:29 Roshunda R INTERNET NETWORK SPECIALIST [id number] ity of Visit REGIONAL [id number] Gerhard as MATERNAL [id number] [address] 2021-10-08 2021-10-08 [facility] [id number] Univers 08:30:00 09:16:29 ROSHUNDA ity o f [facility] 2021-10-08 2021-10-08 [facility] [id number] Univers 08:30:00 09:16:29 Roshunda R INTERNET NETWORK SPECIALIST [id number] ity of Visit REGIONAL [id number] Gerhard as MATERNAL [id number] [facility] & CHILD [address] [place] [address] 2021-10-08 2021-10-08 [facility] [id number] Univers 08:30:00 08:30:00 ROSHUNDA ity o f [facility] 2021-09-28 2021-09-28 [facility]phone [facility] [id number] Univers 00:00:00 00:00:00 Roshunda R INTERNET NETWORK SPECIALIST [id number] ity of REGIONAL [id number] Gerhard as MATERNAL [id number] [facility] & CHILD [address] [place] [address] 2021-09-23 2021-09-23 Outpatient [facility] [id number] Univers 08:30:00 09:21:11 ROSHUNDA ity o f [facility] [facility] 2021-09-23 2021-09-23 [facility] 1.2.840.114 [id number] Univers 08:30:00 09:21:11 Roshunda R INTERNET NETWORK SPECIALIST 350.1.13.10 ity of Visit REGIONAL 4.2.7.2.686 Gerhard as MATERNAL [phone] Med ical & CHILD [address] [place] [address] 2021-09-23 2021-09-23 Outpatient Alec UMANZOR [facility] [id number] Univers 08:30:00 09:21:11 STEWART wisdom o [facility] 2021-09-23 2021-09-23 Outpatient Alec UMANZOR [facility] [id number] Univers 08:30:00 08:30:00 STEWART wisdom o florentin [facility] 2021-09-22 2021-09-22 Telephone [facility] 1.2.780.760 [id number] Univers 00:00:00 00:00:00 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 R INTERNET NETWORK SPECIALIST 350.1.13.10 ity of REGIONAL 4.2.7.2.686 Gerhard as MATERNAL [phone] Med ical & CHILD [address] [place] [address] 2021-09-02 2021-09-02 Outpatient Alec UMANZOR [facility] [id number] Univers 09:00:00 09:35:09 MANNDA artis o [facility] 2021-09-02 2021-09-02 [facility] 1.2.840.114 [id number] Univers 09:00:00 09:35:09 Roshunda R INTERNET NETWORK SPECIALIST 350.1.13.10 ity of Visit REGIONAL 4.2.7.2.686 Gerhard as MATERNAL [phone] Med ical & CHILD [address] [place] [address] 2021-08-12 2021-08-12 [facility]ine [facility] 1.2.474.554 [id number] Univers 09:45:36 10:18:34 Niesha N INTERNET NETWORK SPECIALIST 350.1.13.10 i ty of Visit REGIONAL 4.2.7.2.686 Gerhard as MATERNAL [phone] Med ical & CHILD [address] [place] [address] 2021-08-12 2021-08-12 Outpatient R SULMA [facility] [id number] Univers 09:45:00 10:18:34 NIESHA irineo [facility] 2021-07-23 2021-07-23 Vacuum Frame Operator Ultrasound, [place] [facility] 1.2 .840.114 [id number] Univers 08:18:42 09:18:42 Visit Marcelina Caldwell INTERNET NETWORK SPECIALIST 350.1.13.10 ity of [facility] 4.2.7.2.686 Gerhard as MATERNAL [phone] [facility] ical & CHILD [address] [facility] 2021-07-23 2021-07-23 Outpatient MARCELINA BARLOW [facility] [id number] Univers 08:30:00 08:30:00 MARCELINA CALDWELL [facility] 2021-07-15 2021-07-15 Routine Sulma [facility] 1.2.894.577 [id number] Univers 15:45:52 16:34:08 Niesha Guerra INTERNET NETWORK SPECIALIST 350.1.13.10 i ty of Visit [facility] 4.2.7.2.686 Gerhard as MATERNAL [phone] [facility] & CHILD [address] [place] [address] 2021-07-15 2021-07-15 Outpatient Alec OZUNA [facility] [id number] Univers 15:45:00 16:34:08 NIESHA wisdom [facility] 2021-07-15 2021-07-15 Orders Doctor DAMON 1.2.840.114 [id number] Univers 00:00:00 00:00:00 Only Unassigned, COLLEEN 350.1.13.10 ity of [place] [facility] 4.2.7.2.686 Gerhard as [phone] [address] 2021-06-16 2021-06-16 [facility]ine [facility] .2.840.114 [id number] Univers 12:45:15 14:47:31 Fawad Jean INTERNET NETWORK SPECIALIST 350.1.13 .10 ity of Visit [facility] 4.2.7.2.686 Gerhard as MATERNAL [phone] [facility] [address] 2021-06-16 2021-06-16 Outpatient R [facility] [id number] Univers 12:45:00 12:45:00 ity of [facility] 2021-06-08 2021-06-08 Abstract Erna [facility] 1.2.840.114 [id number] Univers 00:00:00 00:00:00 Stewart R INTERNET NETWORK SPECIALIST 350.1.13.10 ity of REGIONAL 4.2.7.2.686 Gerhard as MATERNAL [id number] [address] 2021-06-07 2021-06-07 Vacuum Frame Operator [facility] 1.2 .840.114 [id number] Univers 15:13:30 15:51:49 Visit Antonio Briones INTERNET NETWORK SPECIALIST 350.1.13.1 0 ity of REGIONAL 4.2.7.2.686 Gerhard as MATERNAL [phone] [facility] & [address] 2021-06-07 2021-06-07 Outpatient P [facility] [id number] Univers 15:30:00 15:30:00 ity of [facility] 2021-05-25 2021-05-25 Outpatient P [facility] [id number] Univers 15:15:00 15:15:00 ity [facility] 2021-05-19 2021-05-19 [facility]ine [facility] 1.2.840.114 [id number] Univers 07:45:28 08:00:28 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 R INTERNET NETWORK SPECIALIST 350.1.13.10 ity of Visit REGIONAL 4.2.7.2.686 Gerhard as MATERNAL [phone] [address] 2021-05-19 2021-05-19 [facility] [id number] Univers 08:00:00 08:00:00 MANNDA ity o f [facility] 2021-05-07 2021-05-07 Telephone Erna [facility] 1.2.729.866 [id number] Univers 00:00:00 00:00:00 Rospaigea R INTERNET NETWORK SPECIALIST 350.1.13.10 ity of REGIONAL 4.2.7.2.686 Gerhard as MATERNAL [phone] [facility] [address] [place] [address] 2021-04-28 2021-04-28 Outpatient R ERNA [facility] [id number] Univers 08:00:00 08:00:00 MANNDA ity o florentin [facility] 2021-04-28 2021-04-28 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 114 [id number] Univers 07:45:11 07:56:57 Visit Stewart Umanzor R INTERNET NETWORK SPECIALIST 350.1.13.10 ity of REGIONAL 4.2.7.2.686 Gerhard as MATERNAL [phone] [facility] [address] [place] [address] 2021-04-22 2021-04-22 Telephone Erna [facility] 1.2.785.280 [id number] Univers 00:00:00 00:00:00 Stewart Michael INTERNET NETWORK SPECIALIST 350.1.13.10 ity of REGIONAL 4.2.7.2.686 Gerhard as MATERNAL [phone] [facility] [address] [place] [address] 2021-04-21 2021-04-21 Initial Erna [facility] 1.2.840.114 [id number] Univers 13:37:44 14:39:26 Stewart Michael INTERNET NETWORK SPECIALIST 350.1.13.10 ity of Visit REGIONAL 4.2.7.2.686 Gerhard as MATERNAL [phone] [facility] & CHILD [address] [place] [address] 2021-04-21 2021-04-21 Outpatient Alec UMANZOR [facility] [id number] Univers 14:00:00 14:00:00 MANNDA artis o florentin [facility] 2021-04-21 2021-04-21 [facility] [id number] Univers 13:30:00 13:30:00 MANNDA deborahy o florentin [facility] 2021-04-21 2021-04-21 Orders Doctor JOSE 1.2.840.114 [id number] Univers 00:00:00 00:00:00 Only Unassigned, COLLEEN 350.1.13.10 ity of [place] [facility] 4.2.7.2.686 Gerhard as [phone] [address] 2020-12-23 2020-12-23 Office Erna [facility] 1.2.840.114 [id number] Univers 08:33:52 09:07:07 Visit 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 R INTERNET NETWORK SPECIALIST 350.1.13.10 ity of [facility] 4.2.7.2.686 Gerhard as MATERNAL [phone] [facility] ical & CHILD [address] [place] [address] 2020-12-23 2020-12-23 Outpatient Alec UMANZOR [facility] [id number] Univers 09:00:00 09:00:00 STEWART wisdom o florentin [facility] 2020-12-23 2020-12-23 Outpatient Alec UMANZOR [facility] [id number] Univers 09:00:00 09:00:00 STEWART barron [facility] 2020-10-06 2020-10-06 Nurse [facility] Nurse [facility] 1.2 .840.114 [id number] Univers 13:12:27 13:30:29 Visit Stewart Umanzor INTERNET NETWORK SPECIALIST 350.1.13.10 ity of [facility] 4.2.7.2.686 Gerhard as MATERNAL [phone] [facility] & [address] 2020-10-06 2020-10-06 Outpatient Alec UMANZOR [facility] [id number] Univers 13:30:00 13:30:00 STEWART wisdom o florentin [facility] 2020-10-02 2020-10-02 [facility] 1.2.840.114 [id number] Univers 12:47:27 13:15:07 Torirajendranda R INTERNET NETWORK SPECIALIST 350.1.13.10 ity of Visit [facility] 4.2.7.2.686 Gerhard as MATERNAL [phone] [facility] [address] [place] [address] 2020-10-02 2020-10-02 Outpatient Alec UMANZOR [facility] [id number] Univers 12:45:00 12:45:00 STEWART lerma [facility] 2020-10-02 2020-10-02 Telephone Erna [facility] 1.2.142.533 [id number] Univers 00:00:00 00:00:00 Stewart R INTERNET NETWORK SPECIALIST 350.1.13.10 ity of REGIONAL 4.2.7.2.686 Gerhard as MATERNAL [phone] [facility] [address] [place] [address] 2020-09-22 2020-09-22 Outpatient Alec UMANZOR [facility] [id number] Univers 10:30:00 10:30:00 STEWART barron [facility] 2020-09-22 2020-09-22 Outpatient Alec UMANZOR [facility] [id number] Univers 10:30:00 10:13:14 STEWART lerma [facility] 2020-09-22 2020-09-22 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 114 [id number] Univers 09:56:24 10:13:14 Visit Stewart Umanzor R INTERNET NETWORK SPECIALIST 350.1.13.10 ity of REGIONAL 4.2.7.2.686 Gerhard as MATERNAL [phone] [address] 2020-09-16 2020-09-16 Telephone Erna [facility] 1.2.743.926 [id number] Univers 00:00:00 00:00:00 Stewart R INTERNET NETWORK SPECIALIST 350.1.13.10 ity of REGIONAL 4.2.7.2.686 Gerhard as MATERNAL [phone] [facility] [address] [place] [address] 2020-09-15 2020-09-15 Outpatient [facility] [id number] Univers 10:30:00 10:30:00 STEWART barron [facility] 2020-09-15 2020-09-15 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 114 [id number] Univers 10:03:02 10:18:02 Visit Stewart Umanzor R INTERNET NETWORK SPECIALIST 350.1.13.10 ity of REGIONAL 4.2.7.2.686 Gerhard as MATERNAL [id number] Med ical & CHILD [address] [place] [address] 2020-09-09 2020-09-09 Telephone [facility] 1.2.146.674 [id number] Univers 00:00:00 00:00:00 Roshunda R INTERNET NETWORK SPECIALIST 350.1.13.10 ity of REGIONAL 4.2.7.2.686 Gerhard as MATERNAL [phone] Med ical & CHILD [address] [place] [address] 2020-09-08 2020-09-08 Outpatient R [facility] [id number] Univers 08:30:00 08:30:00 MANNDA ity o f [facility] 2020-09-08 2020-09-08 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 114 [id number] [facility] 08:02:46 08:14:40 Visit Tori Umanzorarthur R INTERNET NETWORK SPECIALIST 350.1.13.10 ity of REGIONAL 4..7.2.686 Gerhard as MATERNAL [id number] [facility] [address] [place] [address] 2020-09-02 2020-09-02 Outpatient [facility] [id number] Univers 09:30:00 09:30:00 MANNDA itirineo o florentin [facility] 2020-09-02 2020-09-02 [facility] [facility] 1.2.217.544 [id number] Univers 00:00:00 00:00:00 Roshunda R INTERNET NETWORK SPECIALIST 350.1.13.10 ity of REGIONAL 4.2.7.2.686 Gerhard as MATERNAL [phone] [facility] & CHILD [address] [place] [address] 2020-09-01 2020-09-01 Routine [facility] 1.2.840.114 [id number] Univers 13:56:31 14:43:33 Roshunda R INTERNET NETWORK SPECIALIST 350.1.13.10 ity of Visit REGIONAL 4.2.7.2.686 Gerhard as MATERNAL [phone] [facility] ical & CHILD [address] [place] [address] 2020-09-01 2020-09-01 Outpatient [facility] [id number] Univers 14:15:00 14:15:00 MERYA artis o f [facility] 2020-08-27 2020-08-27 Emergency Sulma [facility] 1.2.840.114 [id number] Univers 11:32:00 13:56:00 Nina Kay [place] 350.1.13.10 ity of [place] 4.2.7.2.686 [facility] [phone] [facility] [address] [place] 2020-08-10 2020-08-10 Abstract Erna [facility] 1.2.840.114 [id number] Univers 00:00:00 00:00:00 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 R INTERNET NETWORK SPECIALIST 350.1.13.10 ity of REGIONAL 4.2.7.2.686 Gerhard as MATERNAL [phone] Med ical & CHILD [address] [place] [address] 2020-08-05 2020-08-05 Vacuum Frame Operator [facility] 1.2 .840.114 [id number] Univers 11:24:02 11:54:02 Visit Stewart Umanzor R INTERNET NETWORK SPECIALIST 350.1.13.10 ity of [place] [facility] 4.2.7.2 .686 [place] MATERNAL [id number] Med ical & CHILD [address] [facility] 2020-08-05 2020-08-05 Routine Erna [facility] 1.2.840.114 [id number] Univers 08:31:46 08:46:46 Stewart R INTERNET NETWORK SPECIALIST 350.1.13.10 ity of Visit REGIONAL 4.2.7.2.686 Gerhard as MATERNAL [phone] [facility] ical & CHILD [address] [place] [address] 2020-08-05 2020-08-05 Outpatient Alec UMANZOR [facility] [id number] Univers 08:15:00 08:15:00 STEWART lerma [facility] 2020-07-21 2020-07-21 Outpatient R ERNA [facility] [id number] Univers 10:30:00 10:30:00 STEWART lerma [facility] 2020-07-08 2020-07-08 Initial Erna [facility] 1.2.840.114 [id number] Univers 09:10:38 13:11:01 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 R INTERNET NETWORK SPECIALIST 350.1.13.10 ity of Visit REGIONAL 4.2.7.2.686 Gerhard as MATERNAL [id number] [facility] ical & CHILD [address] [facility] 2020-07-08 2020-07-08 Outpatient R ERNA [facility] [id number] Univers 08:00:00 08:00:00 ROSHUNDA ity o f [facility] 2020-07-08 2020-07-08 Transition Ze[facility] 1.2.840.114 [id number] Univers 00:00:00 00:00:00 of Care Kizzy Bucio 350.1.13.10 ity of [place].2.[place] [id number] [facility] [address] 2020-07-08 2020-07-08 Orders Doctor DAMON 1.2.840.114 [id number] Univers 00:00:00 00:00:00 Only Unassigned, COLLEEN 350.1.13.10 ity of [place] [facility] 4.2.7.2.686 Gerhard as [id number] [facility] [address] 2020-07-03 2020-07-06 [facility] Salazar Naima [facility] 1.2.840. 114 [id number] Univers 18:32:00 15:30:00 Encounter Alexei Chaudhari [place] 350.1.13.10 ity of [place].2.[place] [phone] [facility] [address] [place] 2020-07-06 2020-07-06 Telephone [facility] 1.2.439.470 [id number] Univers 00:00:00 00:00:00 Rospaigea R INTERNET NETWORK SPECIALIST 350.1.13.10 ity of [facility] 4.2.7.2.686 Gerhard as MATERNAL [phone] [facility] & CHILD [address] [place] [address] 2020-07-02 2020-07-02 Office [facility] 1.2.840.114 [id number] Univers 10:31:06 11:44:01 Visit Stewart R INTERNET NETWORK SPECIALIST 350.1.13.10 ity of [facility] 4.2.7.2.686 Gerhard as MATERNAL [phone] [facility] ical & CHILD [address] [place] [address] 2020-07-02 2020-07-02 Outpatient R ERNA [facility] [id number] Univers 10:45:00 10:45:00 STEWART ity o f [facility] 2020-07-02 2020-07-02 Orders Doctor DAMON 1.2.840.114 [id number] Univers 00:00:00 00:00:00 Only Unassigned, COLLEEN 350.1.13.10 ity of [place] [facility] 4.2.7.2.686 Gerhard as [id number] [address] 2020-07-01 2020-07-01 Telephone ANUJ Childress 1.2.840.114 [id number] [facility] 00:00:00 00:00:00 Aline Anand INTERNET NETWORK SPECIALIST 350.1.13.10 ity of [facility] 4.2.7.2.686 Gerhard as MATERNAL [phone] [facility] [address] [place] [address] 2019-10-24 2019-10-24 [facility] 1.2 .840.114 [id number] [facility] 08:11:42 08:48:18 Visit Aline Childress INTERNET NETWORK SPECIALIST 350.1.13. 10 ity of [facility] 4.2.7.2.686 Gerhard as MATERNAL [id number] [facility] & CHILD [address] [place] [address] 2019-05-09 2019-05-09 Nurse Visit, Isabelle Nurse [facility] 1.2 .840.114 [id number] Univers 09:28:44 09:44:44 Visit Aline Childress INTERNET NETWORK SPECIALIST 350.1.13. 10 ity of [facility] 4.2.7.2.686 Gerhard as MATERNAL [phone] [facility] [address] [place] [address] Results Test Description Test Time Test Comments Results Result Comments Source POCT TEST 2022-01-24 20:19:00 Test Item Value Reference Range Interpretation Comme nts POCT PREG (test code = 1605) Negative On board controls acceptable with C Line (test code = 3574) Yes POCT PREG LOT # (test code = 3575) POCT PREG TEST DATE (test code = 3576) [facility]
--- NOTE | 2022-08-18 21:19 | RAD REPORT ---
EXAM DESCRIPTION: CT - Head Brain Wo Cont - 08/18/2022 9:12 pm CLINICAL HISTORY: Headache, classic migraine COMPARISON: Head Brain Wo Cont dated 08/18/2022 TECHNIQUE: All CT scans are performed using dose optimization technique as appropriate and may inclu de automated exposure control or mA/KV adjustment according to patient size. FINDINGS: No intracranial hemorrhage, hydrocephalus or extra-axial fluid collection.No areas of brai n edema or evidence of midline shift. The paranasal sinuses and mastoids are clear. The calvarium is intact. IMPRESSION: No acute intracranial abnormality.
[2022-08-18] MEDS ORDERED: DIPHENHYDRAMINE 50 MG/ML VIAL ONE (21:46)
[2022-08-18] MEDS ORDERED: NA CHLORIDE 0.9% 1,000 ML ONE ×2 (21:46→23:09)
[2022-08-18] MEDS ORDERED: KETOROLAC 30 MG/ML INJ ONE (21:46)
[2022-08-18] MEDS ORDERED: METOCLOPRAMIDE 10 MG/2mL INJ ONE (21:46)
[2022-08-18] MEDS ORDERED: NA CHLORIDE 0.9% 50 ML IV ONE (21:46)
[2022-08-18 22:21] LABS: Absolute Lymphocytes (CBC) 0.9 K/uL (0.7-4.9); Hematocrit 42.7 % (36.0-45.0); Lymphocytes % 7.8 % (15.3-44.8); MCV 85.2 fL (80-100); MPV 7.7 fL (7.6-11.3); RBC Red Blood Cell Count 5.02 M/uL (3.86-4.86)
[2022-08-18 22:36] LABS: Albumin 4.5 g/dL (3.4-5.0); Bilirubin Total 0.7 mg/dL (0.2-1.0); Potassium 3.9 mmol/L (3.5-5.1); Protein, Total 8.8 g/dL (6.4-8.2)
[2022-08-18 22:52] LABS: Urine Blood 2+ (Negative); Urine Glucose Negative (Negative); Urine Protein Trace (Negative)
--- NOTE | 2022-08-18 23:46 | ER ---
Nurse's Notes [facility] Name: Rickey Gary Age: 27 yrs Sex: Female : 1995 Arrival Date: 08/18/2022 Time: 19:20 Bed 23 Private MD: Diagnosis: Headache Presentation: 08/18 19:36 Chief complaint: Headache and N/V x 2 days. Coronavirus screen: At this time, the hb client does not indicate any symptoms associated with coronavirus-19. Ebola Screen: No symptoms or risks identified at this time. Initial Sepsis Screen: Does the patient meet any 2 criteria? No. Patient's initial sepsis screen is negative. Does the patient have a suspected source of infection? No. Patient's initial sepsis screen is negative. Risk Assessment: Do you want to hurt yourself or someone else? Patient reports no desire to harm self or others. Onset of symptoms was August 17, 2022. 19:36 Method Of Arrival: Ambulatory 19:36 Acuity: MILTON 3 hb Triage Assessment: 23:59 Pain: Also complains of. 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 - Family history:: not pertinent. - Social history:: Smoking status: Patient denies any tobacco usage or history of. Patient/guardian denies using alcohol. Screenin:22 Abuse screen: Denies threats or abuse. Denies injuries from another. Nutritional eh3 screening: No deficits noted. Tuberculosis screening: No symptoms or risk factors identified. Fall Risk None identified. Assessment: 21:22 General: Appears in no apparent distress. uncomfortable, Behavior is calm, cooperative, eh3 appropriate for age. Pain: Complains of pain in forehead, right roman catholic and left roman catholic Pain does not radiate. 21:22 Neuro: Level of Consciousness is awake, alert, obeys commands, Oriented to person, eh3 place, time, situation. Cardiovascular: Capillary refill < 3 seconds Patient's skin is warm and dry. Respiratory: Airway is patent Respiratory effort is even, unlabored, Respiratory pattern is regular, symmetrical. GI: No signs and/or symptoms were reported involving the gastrointestinal system. Abdomen is flat, non-distended. : No signs and/or symptoms were reported regarding the genitourinary system. EENT: No signs and/or symptoms were reported regarding the EENT system. Derm: No signs and/or symptoms reported regarding the dermatologic system. Musculoskeletal: No signs and/or symptoms reported regarding the musculoskeletal system. Circulation, motion, and sensation intact. Range of motion: intact in all extremities. 22:30 Reassessment: Patient appears in no apparent distress at this time. Patient and/or 3 family updated on plan of care and expected duration. Pain level reassessed. Patient is alert, oriented x 3, equal unlabored respirations, skin warm/dry/pink. Patient states symptoms have improved. 23:30 Reassessment: Patient appears in no apparent distress at this time. Patient and/or 3 family updated on plan of care and expected duration. Pain level reassessed. Patient is alert, oriented x 3, equal unlabored respirations, skin warm/dry/pink. Vital Signs: 19:36 BP 122 / 85; Pulse 117; Resp 16; Temp 98.5; Pulse Ox 99% ; Weight 65.77 kg; Height 5 hb ft. 5 in. (165.10 cm); Pain 9/10; 21:22 BP 125 / 82; Pulse 105; Resp 18; Pulse Ox 100% on R/A; eh3 22:30 BP 114 / 72; Pulse 100; Resp 18; Pulse Ox 100% on R/A; eh3 23:30 BP 116 / 70; Pulse 94; Resp 16; Pulse Ox 100% on R/A; eh3 19:36 Body Mass Index 24.13 (65.77 kg, 165.10 cm) hb Shalom Coma Score: 23:03 Eye Response: spontaneous(4). Verbal Response: oriented(5). Motor Response: obeys charlotte commands(6). Total: 15. ED Course: 19:20 Patient arrived in ED. as 19:37 Triage completed. hb 20:28 Chris Dempsey MD is Attending Physician. charlotte 21:14 CT Head Brain wo Cont In Process Unspecified. EDMS 21:20 Ashley Gross, ESTRELLITA is Primary Nurse. 3 21:22 Patient has correct armband on for positive identification. Bed in low position. Call [facility] light in reach. Side rails up X2. Adult w/ patient. Pulse ox on. NIBP on. Door closed. Noise minimized. Lights dimmed. Warm blanket given. 22:00 Inserted saline lock: 20 gauge in left antecubital area, using aseptic technique. Blood eh3 collected. 23:28 US Abdomen Limited In Process Unspecified. EDMS 23:45 Anthony Werner MD is Referral Physician. [facility] 23:59 No provider procedures requiring assistance completed. IV discontinued, intact, eh3 bleeding controlled, No redness/swelling at site. Pressure dressing applied. Administered Medications: 22:05 Drug: NS 0.9% 1000 ml Route: IV; Rate: 1 bolus; Site: left antecubital; eh3 23:11 Follow up: IV Status: Completed infusion; IV Intake: 1000ml eh3 22:05 Drug: Benadryl (diphenhydrAMINE) 50 mg Route: IVP; Site: left antecubital; eh3 22:55 Follow up: Response: Pain is decreased eh3 22:05 Drug: Reglan (metoCLOPramide) 10 mg Route: IVP; Site: left antecubital; eh3 22:55 Follow up: Response: Pain is decreased eh3 22:05 Drug: Ketorolac 30 mg Route: IVP; Site: left antecubital; eh3 22:55 Follow up: Response: Pain is decreased eh3 23:11 Drug: NS 0.9% 1000 ml Route: IV; Rate: 1 bolus; Site: left antecubital; eh3 23:59 Follow up: IV Status: Completed infusion; IV Intake: 1000ml eh3 Medication: 23:59 VIS not applicable for this client. eh3 Intake: 23:11 IV: 1000ml; Total: 1000ml. eh3 23:59 IV: 1000ml; Total: 2000ml. eh3 Outcome: 23:45 Discharge ordered by . [facility] 1209 00:00 Discharged to home ambulatory, with family. eh3 Condition: stable Discharge instructions given to patient, Instructed on discharge instructions, follow up and referral plans. medication usage, Demonstrated understanding of instructions, follow-up care, medications, Prescriptions given X 3. 00:00 Patient left the ED. eh3 Signatures: Dispatcher [employer] EDKS Chris Dempsey MD MD cha Martinez, Amelia as Baxter, Heather, RN RN Ashley Gross RN RN eh3 Corrections: (The following items were deleted from the chart) 08/18 22:56 21:22 Pain: Complains of pain in head eh3 eh3
--- NOTE | 2022-08-18 23:46 | EDPHYS ---
Physician Documentation [facility] Name: Rickey Gary Age: 27 yrs Sex: Female : 1995 Arrival Date: 08/18/2022 Time: 19:20 Bed 23 Private MD: ED Physician Chris Dempsey HPI: 08/18 22:40 This 27 yrs old Female presents to ER via Ambulatory with complaints of charlotte Headache. 22:40 The patient complains of pain to the top of head, forehead, left frontal area, left charlotte temporal area, right frontal area and right temporal area. The patient describes the headache as aching. Onset: The symptoms/episode began/occurred 1 day(s) ago. Associated signs and symptoms: Pertinent positives: nausea. Severity of symptoms: At its worst the pain was mild, this morning, in the emergency department the pain is unchanged. Headache History: Denies prior headaches. 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 - Family history:: not pertinent. - Social history:: Smoking status: Patient denies any tobacco usage or history of. Patient/guardian denies using alcohol. ROS: 22:40 Constitutional: Negative for fever, chills, and weight loss, Eyes: Negative for injury, charlotte pain, redness, and discharge, ENT: Negative for injury, pain, and discharge, Neck: Negative for injury, pain, and swelling, Cardiovascular: Negative for chest pain, palpitations, and edema, Respiratory: Negative for shortness of breath, cough, wheezing, and pleuritic chest pain, Abdomen/GI: Negative for abdominal pain, nausea, vomiting, diarrhea, and constipation, Back: Negative for injury and pain, : Negative for injury, bleeding, discharge, and swelling, MS/Extremity: Negative for injury and deformity, Skin: Negative for injury, rash, and discoloration, Psych: Negative for depression, anxiety, suicide ideation, homicidal ideation, and hallucinations, Allergy/Immunology: Negative for hives, rash, and allergies, Endocrine: Negative for neck swelling, polydipsia, polyuria, polyphagia, and marked weight changes, Hematologic/Lymphatic: Negative for swollen nodes, abnormal bleeding, and unusual bruising. 22:40 Neuro: Positive for headache. Exam: 22:40 Constitutional: This is a well developed, well nourished patient who is awake, alert, charlotte and in no acute distress. Head/Face: Normocephalic, atraumatic. Eyes: Pupils equal round and reactive to light, extra-ocular motions intact. Lids and lashes normal. Conjunctiva and sclera are non-icteric and not injected. Cornea within normal limits. Periorbital areas with no swelling, redness, or edema. ENT: Nares patent. No nasal discharge, no septal abnormalities noted. Tympanic membranes are normal and external auditory canals are clear. Oropharynx with no redness, swelling, or masses, exudates, or evidence of obstruction, uvula midline. Mucous membranes moist. Neck: Trachea midline, no thyromegaly or masses palpated, and no cervical lymphadenopathy. Supple, full range of motion without nuchal rigidity, or vertebral point tenderness. No Meningismus. Chest/axilla: Normal chest wall appearance and motion. Nontender with no deformity. No lesions are appreciated. Cardiovascular: Regular rate and rhythm with a normal S1 and S2. No gallops, murmurs, or rubs. Normal PMI, no JVD. No pulse deficits. Respiratory: Lungs have equal breath sounds bilaterally, clear to auscultation and percussion. No rales, rhonchi or wheezes noted. No increased work of breathing, no retractions or nasal flaring. Back: No spinal tenderness. No costovertebral tenderness. Full range of motion. Female : Normal external genitalia. Skin: Warm, dry with normal turgor. Normal color with no rashes, no lesions, and no evidence of cellulitis. MS/ Extremity: Pulses equal, no cyanosis. Neurovascular intact. Full, normal range of motion. Neuro: Awake and alert, GCS 15, oriented to person, place, time, and situation. Cranial nerves II-XII grossly intact. Motor strength 5/5 in all extremities. Sensory grossly intact. Cerebellar exam normal. Normal gait. Psych: Awake, alert, with orientation to person, place and time. Behavior, mood, and affect are within normal limits. 22:40 Neck: ROM/movement: is normal, no acute changes, limited range of motion, is not appreciated, Meningeal signs: are not present, nuchal rigidity, is not appreciated. 22:40 Abdomen/GI: Inspection: abdomen appears normal. Vital Signs: 19:36 BP 122 / 85; Pulse 117; Resp 16; Temp 98.5; Pulse Ox 99% ; Weight 65.77 kg; Height 5 hb ft. 5 in. (165.10 cm); Pain 9/10; 21:22 BP 125 / 82; Pulse 105; Resp 18; Pulse Ox 100% on R/A; eh3 22:30 BP 114 / 72; Pulse 100; Resp 18; Pulse Ox 100% on R/A; eh3 23:30 BP 116 / 70; Pulse 94; Resp 16; Pulse Ox 100% on R/A; eh3 19:36 Body Mass Index 24.13 (65.77 kg, 165.10 cm) hb Shalom Coma Score: 23:03 Eye Response: spontaneous(4). Verbal Response: oriented(5). Motor Response: obeys [facility] commands(6). Total: 15. MDM: 20:28 Patient medically screened. charlotte 23:03 Differential diagnosis: cluster headache, hypertensive headache, migraine, temporal charlotte arteritis, tension headache, vasomotor headache. Data reviewed: vital signs, nurses notes, lab test result(s), radiologic studies, CT scan. Data interpreted: Pulse oximetry: on room air is 100 %. Test interpretation: by ED physician or midlevel provider:. Counseling: I had a detailed discussion with the patient and/or guardian regarding: the historical points, exam findings, and any diagnostic results supporting the discharge/admit diagnosis, lab results, radiology results, the need for outpatient follow up, for definitive care, a family practitioner, a neurologist. 08/18 20:30 Order name: CBC with Diff; Complete Time: 22:36 [facility] 08/18 20:37 Order name: Comprehensive Metabolic Panel; Complete Time: 23:02 [facility] 08/18 20:37 Order name: CT Head Brain wo Cont; Complete Time: 22:36 [facility] 08/18 22:52 Order name: Urine Dipstick-Ancillary; Complete Time: 23:02 ED[facility] 08/18 23:02 Order name: Urine --Ancillary (enter results); Complete Time: 23:45 ds4 08/18 23:03 Order name: US Abdomen Limited [facility] 08/18 20:37 Order name: Urine Dipstick-Ancillary (obtain specimen); Complete Time: 22:55 [facility] 08/18 20:37 Order name: Urine Test (obtain specimen); Complete Time: 22:55 [facility] 08/18 20:37 Order name: Oxygen; Complete Time: 21:41 charlotte Administered Medications: 22:05 Drug: NS 0.9% 1000 ml Route: IV; Rate: 1 bolus; Site: left antecubital; eh3 23:11 Follow up: IV Status: Completed infusion; IV Intake: 1000ml eh3 22:05 Drug: Benadryl (diphenhydrAMINE) 50 mg Route: IVP; Site: left antecubital; eh3 22:55 Follow up: Response: Pain is decreased eh3 22:05 Drug: Reglan (metoCLOPramide) 10 mg Route: IVP; Site: left antecubital; eh3 22:55 Follow up: Response: Pain is decreased eh3 22:05 Drug: Ketorolac 30 mg Route: IVP; Site: left antecubital; eh3 22:55 Follow up: Response: Pain is decreased eh3 23:11 Drug: NS 0.9% 1000 ml Route: IV; Rate: 1 bolus; Site: left antecubital; eh3 23:59 Follow up: IV Status: Completed infusion; IV Intake: 1000ml eh3 Disposition Summary: 08/18/22 23:45 Discharge Ordered Location: Home charlotte Problem: new charlotte Symptoms: have improved charlotte Condition: Stable charlotte Diagnosis - Headache charlotte Followup: charlotte - With: Private Physician - When: 2 - 3 days - Reason: Recheck today's complaints, Continuance of care, Re-evaluation by your physician Followup: charlotte - With: - When: 2 - 3 days - Reason: Recheck today's complaints, Re-evaluation by your physician Discharge Instructions: - Discharge Summary Sheet charlotte - General Headache Without Cause charlotte - General Headache Without Cause, [id number] charlotte Forms: - Medication Reconciliation Form charlotte - Thank You Letter charlotte - Antibiotic Education charlotte - Prescription Opioid Use charlotte Prescriptions: - Fioricet with Codeine [id number] mg Oral capsule - take 1 capsule by ORAL route every 6 hours as needed not to exceed 6 capsules charlotte per 24hrs; 20 capsule; Refills: 0, Product Selection Permitted - Ibuprofen 600 mg Oral Tablet - take 1 tablet by ORAL route every 6 hours As needed take with food; 20 tablet; charlotte Refills: 0, Product Selection Permitted - Zofran 4 mg Oral Tablet - take 1 tablet by ORAL route every 12 hours As needed; 20 tablet; Refills: 0, charlotte Product Selection Permitted Signatures: Dispatcher [employer] Chris Mena MD MD cha Baxter, Heather, RN RN Ashley Gross RN RN eh3
[2022-08-19 01:50] VITALS: TEMP 98.5
[2022-08-19 01:52] VITALS: O2SAT 100
[2022-08-19 01:54] VITALS: BP 116/70
--- NOTE | 2022-08-19 11:00 | RAD REPORT ---
EXAM DESCRIPTION: Abdomen Exam Limited 08/18/2022 11:37 PM SUSTAINABILITY PROJECT COORDINATOR CLINICAL HISTORY: 27 years, Female, ABD PAIN COMPARISON: None. TECHNIQUE: Utilizing a curved array transducer, real-time ultrasound evaluation of the abdominal vis cera was performed. Color Doppler imaging was used to assess vascular flow. FINDINGS: The liver, kidney, pancreas and retroperitoneum were not imaged. Visualized portions of the gallbladder demonstrate to be unremarkable. The common bile duct measures 2.6 mm. IMPRESSION: Limited examination of the abdomen. Visualized portions of the gallbladder are unremarka ble. Electronically signed by: Will Balderas MD 08/18/2022 11:38 PM SUSTAINABILITY PROJECT COORDINATOR Due to temporary technical issues with the PACS/Fluency reporting system, reports are being signed by the in house radiologists without review as a courtesy to insure prompt reporting. The interpreting radiologist is fully responsible for the content of the report.
== END 2022-08-19 | disposition home or self-care (01) ==
LOC: ER 19:19
DX: R51.9 Headache, unspecified (principal)
CPT/HCPCS: 96361; 85025; 36415; 81025; 81003; 80053; 70450; 76705; 96375; 96374; 99284; J2765; J1200; J7030 ×2